=== PATIENT | female | born 1940 ===

== ENCOUNTER 2017-03-22 13:29 | Emergency (ER) | payer MEDICARE, BC ==
[2017-03-22 13:51] VITALS: BP 139/68
[2017-03-22] MEDS ORDERED: predniSONE TAB* 20 MG PO ONE (14:39)
--- NOTE | 2017-03-22 14:50 | UC ---
Ear Complaint HPI - HPI Summary HPI Summary: 76 yo female with right ear pressure and decreased hearing that started about a month ago Then started with her left ear 2 weeks ago seen by PCP and started on flonase They have suggested ENT referral and she came here for a second opinion - History of Current Complaint Chief Complaint: UCGeneralIllness Stated Complaint: SINUS ISSUE Time Seen by Provider: 03/22/17 14:31 Hx Obtained From: Patient Onset/Duration: Gradual Onset, Lasting Weeks Severity Initially: Mild Severity Currently: Mild Pain Intensity: 2 Pain Scale Used: 0-10 Numeric Aggravating Factors: Nothing Alleviating Factors: Nothing Associated Signs/Symptoms: Positive: Hearing Loss, URI Symptoms Related History: Seasonal Allergies - Allergies/Home Medications Allergies/Adverse Reactions: Allergies Allergy/AdvReac Type Severity Reaction Status Date / Time Epinephrine Allergy Palpitation Verified 03/22/17 13:40 s Home Medications: Home Medications Calcium Carbonate (Antacid) [Tums] 500 mg PO 03/22/17 [History Confirmed ] Calcium Carbonate-Vit D-Vit C- [Os-Matthew Ultra] 1 tab PO 03/22/17 [History] Gemfibrozil TAB* [Lopid TAB*] 600 mg PO BID 03/22/17 [History Confirmed ] Multiple Vitamins W/ Minerals [Multivitamin Adults] 1 tab PO 03/22/17 [History] PMH/Surg Hx/FS Hx/Imm Hx Previously Healthy: Yes Endocrine History: Dyslipidemia - Surgical History Surgical History: Yes Surgery Procedure, Year, and Place: hysterectomy - <20years ago. - Family History Known Family History: Positive: Hypertension - Social History Alcohol Use: None Substance Use Type: None Smoking Status (MU): Former Smoker Review of Systems Constitutional: Negative Skin: Negative Eyes: Negative ENT: Ear Ache, Sinus Congestion Respiratory: Negative Cardiovascular: Negative Gastrointestinal: Negative Genitourinary: Negative Motor: Negative Neurovascular: Negative Musculoskeletal: Negative Neurological: Negative Psychological: Negative Is Patient Immunocompromised?: Yes All Other Systems Reviewed And Are Negative: Yes Physical Exam Triage Information Reviewed: Yes Appearance: Well-Appearing, No Pain Distress, Well-Nourished Vital Signs: Initial Vital Signs Temp 98.4 F 03/22/17 13:43 Pulse 94 03/22/17 13:43 Resp 18 03/22/17 13:43 BP 139/68 03/22/17 13:43 Pulse Ox 98 03/22/17 13:43 Eyes: Positive: Conjunctiva Inflamed ENT: Positive: TM bulging, TM dull. Negative: Hearing grossly normal, Tonsillar swelling, Tonsillar exudate, Trismus, Muffled/hoarse voice Neck: Positive: Supple, Nontender Respiratory: Positive: Lungs clear, Normal breath sounds, No respiratory distress Cardiovascular: Positive: RRR, No Murmur Neurological: Positive: Alert Psychological Exam: Normal Skin Exam: Normal Ear Complaint Course/Dx - Differential Dx/Diagnosis Provider Diagnoses: hearing loss. ?Serous Otitis Media Discharge - Discharge Plan Condition: Stable Disposition: HOME Prescriptions: Prednisone [Deltasone] 40 mg PO DAILY #13 tab Patient Education Materials: Serous Otitis Media (ED) Referrals: Panfilo Hernandez MD [Primary Care Provider] - As Soon As Possible Additional Instructions: I think you should contact your primary re. ENT referral
== END 2017-03-22 15:07 | disposition home or self-care (01) ==
LOC: UCEAST 13:29
DX: H91.93 Unspecified hearing loss, bilateral (principal)
CPT/HCPCS: 99212; G0463; J7512